=== PATIENT | male | born 1950 | race Two or more races ===

== ENCOUNTER 2018-07-25 12:02 | Inpatient (IN) | payer MEDICARE, OTHER ==
[~2018-07-25] VITALS: Ht 180.3 cm; Wt 81.6 kg
[2018-07-25] MEDS ORDERED: ACETAMINOPHEN 325 MG TABLET PO PRN (13:30)
[2018-07-25] MEDS ORDERED: MAG HYDROX/AL HYDROX/SIMETH 30 ML UDC PO PRN (13:30)
[2018-07-25] MEDS ORDERED: MAGNESIUM HYDROXIDE 30 ML UDC PO PRN (13:30)
[2018-07-25] MEDS ORDERED: METO-357 PO (14:06)
[2018-07-25] MEDS ORDERED: QUET300T2 PO (14:06)
[2018-07-25] MEDS ORDERED: CLON0.1T PO (14:06)
[2018-07-25] MEDS ORDERED: AMLO10TA6 PO (14:06)
--- NOTE | 2018-07-25 14:57 | NUR ---
GPS/RN LEFT MESSAGE WITH [facility] FOR TIME HARRY, REGARDING NEW ADMIT, NEED TO RECONCILE MEDS AND INCREASED BP OF 170/83, AWAITING CALL BACK.
[2018-07-25 16:00] VITALS: BP 188/94
--- NOTE | 2018-07-25 18:32 | NUR ---
GPS/RN ANN-MARIE MCDONALD NOTIFIED REGARDING NEED TO RECONCILE MEDS AND BP OF 188/94, AWAITING CALL BACK, NO NEW ORDERS AT THIS TIME.
--- NOTE | 2018-07-25 18:38 | NUR ---
GPS/RN PATIENT ADMITTED ON A 5150 HOLD FOR DTO AND DTS UNDER THE CARE OF DR MILLAN AND ANN-MARIE MCDONALD. BOTH DR'S AWARE OF NEW ADMISSION. AWAITING ANN-MARIE MCDONALD TO RECONCILE MEDS AND HE IS AWARE OF INCREASED BP. PER HOLD PATIENT WAS WALKING AROUND NAKED AND NOT ALLOWING HIS FAMILY MEMBERS TO LEAVE THE ROOM. PATIENT ALSO PAINTED HIS APPENDAGES WITH BLACK LATEX PAINT. UPON FACE TO FACE ASSESSMENT, PATIENT IS ALERT X 2-3, STABLE CONDITION,ANXIOUS, EASILY AGITATED, UNKEMPT AND DISORGANIZED. BELONGINGS COLLECTED, PATIENT DENIES SI/HI/AVH, PATIENT REFUSED SKIN ASSESSMENT X 3, EXPLAINED RISKS AND BENEFITS. BLACK PAIN IS VISIBLE ON LEGS AND ARMS. WILL CONTINUE TO MONITOR Q 15 MIN FOR SAFETY AND BEHAVIOR.
[2018-07-25] MEDS: LORAZEPAM 0.5 MG TABLET PO PRN (19:52)
--- NOTE | 2018-07-25 19:52 | NUR ---
GPS-RN PATIENT IS VERY ANXIOUS, RESTLESS AND PACING IN AND OUT OF HIS ROOM. ADMINISTERED ATIVAN 1MG PO ORDERED. WILL CONTINUE TO MONITOR Q15MIN ROUNDS FOR SAFETY AND BEHAVIOR.
[2018-07-25 20:34] VITALS: BP 168/93
[2018-07-26] MEDS ORDERED: DEXTROSE 50%-WATER 50 ML DISP.SYRIN IV PRN (04:00)
[2018-07-26] MEDS ORDERED: INSULIN REGULAR, HUMAN 100 UNIT/ML 3 ML VIAL SQ PRN (04:00)
[2018-07-26 06:50] LABS: BASOPHILS % (AUTO) 0.3 % (0.0-2.0); EOSINOPHILS % (AUTO) 11.8 % (0.0-6.0); HEMATOCRIT 37 % (39-51); HEMOGLOBIN 12.5 g/dL (13.5-17.5); LYMPHOCYTES # (AUTO) 1.9 /CMM (0.8-4.8); MEAN CORPUSCULAR HGB CONC 34 g/dl (31.0-36.0); MEAN CORPUSCULAR VOLUME 99 fL (80-96); MONOCYTES # (AUTO) 0.7 /CMM (0.1-1.30); NEUTROPHILS # (AUTO) 2.3 /CMM (1.8-8.9); NEUTROPHILS % (AUTO) 41.9 % (43.0-81.0); PLATELET COUNT (AUTO) 256 /CMM (150-450); RDW COEFFICIENT OF VARIATION 14.8 (11.5-15.0); RED BLOOD CELL COUNT(AUTO) 3.73 MIL/uL (4.5-6.0); WHITE BLOOD COUNT (AUTO) 5.5 K/uL (4.3-11.0)
[2018-07-26] MEDS: LORAZEPAM 0.5 MG TABLET PO PRN (06:59)
--- NOTE | 2018-07-26 06:59 | NUR ---
GPS-RN PATIENT IS VERY ANXIOUS, RESTLESS, PACING IN AND OUT OF HIS ROOM, NEEDS FREQUENT REDIRECTION. ADMINISTERED ATIVAN 1MG PO ORDERED. WILL CONTINUE TO MONITOR Q15MIN FOR SAFETY AND BEHAVIOR.
[2018-07-26 07:16] LABS: CHOLESTEROL 191 mg/dL (<200); HDL CHOLESTEROL 81 mg/dL (40-60); LDL 105 mg/dL (0-99); TRIGLYCERIDES 39 mg/dL (30-150)
[2018-07-26 07:28] LABS: ALBUMIN 3.1 g/dL (3.4-5.0); BILIRUBIN,TOTAL 0.4 mg/dL (0.2-1.0); CALCIUM, SERUM 8.5 mg/dL (8.5-10.1); CREATININE 1.3 mg/dL (0.6-1.3); MAGNESIUM 2.1 mg/dL (1.8-2.4); PHOSPHORUS 3.7 mg/dL (2.5-4.9); POTASSIUM 4.1 mmol/L (3.5-5.1); TOTAL PROTEIN, SERUM 6.7 g/dL (6.4-8.2)
[2018-07-26] MEDS: BLOOD SUGAR DIAGNOSTIC 1 EACH STRIP IN SCH ×4 (07:30→21:38)
[2018-07-26 08:00] VITALS: BP 154/88
[2018-07-26 08:47] LABS: THYROID STIMULATING HORMONE 0.939 uIU/mL (0.358-3.74)
[2018-07-26] MEDS ORDERED: HALOPERIDOL LACTATE INJ 5 MG/ML VIAL IM STA (08:48)
[2018-07-26] MEDS ORDERED: LORAZEPAM INJ 2 MG/ML VIAL IM STA (08:49)
[2018-07-26] MEDS ORDERED: diphenhydrAMINE HCL 50 MG/ML VIAL IM STA (08:50)
--- NOTE | 2018-07-26 09:14 | NUR ---
GPS RN NOTE; PT PACING IN THE HALLWAY RESTLESS, AGITATED, AGGRESSIVE, UNABLE TO CONTROL BEHAVIOR , PT THREATENING STAFF,,POINTING FINGER WILE TALKING, ARGUMENTATIVE, PT REQUESTING A SHOT STATED " I ALWAYS GET SHOTS" PT VOLUNTARY TOLD TO GET A SHOT. DR VIVAR NOTIFIED WITH ORDER FOR HALDOL 5 MG IM ONCE BENADRYL 25 MG IM ONCE ATIVAN 2 MG IM ONCE ORDER PLACED AND CARED OUT.PT COOPERATIVELY , NO PHYSICAL HOLD , PT WAS EXPLAIN OF INJECTABLE MEDICATIONS PT AWARE AND AGREED , VSS , WILL CONTINUE MONITORING FOR SAFETY AND BEHAVIOR Q 15 MIN
[2018-07-26] MEDS: AMLODIPINE BESYLATE 10 MG TABLET PO SCH (11:18)
[2018-07-26] MEDS: METOPROLOL SUCCINATE 50 MG TAB.SR.24H PO SCH (11:18)
[2018-07-26] MEDS: CLONIDINE HCL 0.1 MG TABLET PO SCH ×2 (11:18→16:00)
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
[2018-07-26 16:00] VITALS: BP_SYST 148; BP_SYST 174; BP_DIAS 72; BP_DIAS 88
[2018-07-26] MEDS: METFORMIN 500 MG TABLET PO SCH (16:00)
[2018-07-26 20:54] VITALS: BP 160/87
[2018-07-26] MEDS: QUETIAPINE FUMARATE 100 MG TABLET PO SCH (21:35)
--- NOTE | 2018-07-26 21:40 | NUR ---
GPS-RN PATIENT REFUSED ACCUCHE Addendum: 07/27/18 at 0614 by JESUS PRESLEY RN PATIENT REFUSED ACCUCHECK. EDUCATION GIVEN. PATIENT STILL REFUSED. PATIENT STATED "I AM NOT DIABETIC".
[2018-07-26] MEDS: TEMAZEPAM 7.5 MG CAPSULE PO PRN (22:12)
[2018-07-27] MEDS: BLOOD SUGAR DIAGNOSTIC 1 EACH STRIP IN SCH ×4 (07:30→21:10)
--- NOTE | 2018-07-27 07:35 | NUR ---
GPS/RN-NOTES PATIENT REFUSED ACCU-CHECK.STATED" I'M NOT DIABETIC".
[2018-07-27 08:00] VITALS: BP 139/83
[2018-07-27] MEDS: CLONIDINE HCL 0.1 MG TABLET PO SCH ×3 (09:00→16:46)
[2018-07-27] MEDS: METOPROLOL SUCCINATE 50 MG TAB.SR.24H PO SCH (09:00)
[2018-07-27] MEDS: AMLODIPINE BESYLATE 10 MG TABLET PO SCH (09:00)
[2018-07-27] MEDS: METFORMIN 500 MG TABLET PO SCH ×3 (09:00→16:46)
--- NOTE | 2018-07-27 09:28 | NUR ---
GPS/RN-NOTES PATIENT REFUSED ALL 0900AM MEDICATIONS DESPITE EXPLANATIONS RISK AND BENEFITS.PATIENT GETS ANGRY THROW ALL MEDICATIONS ON THE FLOOR WITH LOUD VOICE USING FOUL LANGUAGES , THREATENING SENIOR PRINCIPAL PROCESS ENGINEER TO GET OUT OF HIS ROOM AND ACCUSED SENIOR PRINCIPAL PROCESS ENGINEER OF NOT GIVING THE RIGHT MEDICATIONS. STATED" I DON'T WANT YOU WOMAN TO COME GIVE ME ANY MEDICATIONS AGAIN,I'M NOT DIABETIC". CHARGE NURSE AWARE AND AGREED TO CHANGE THE NURSE FOR THE PATIENT.
--- NOTE | 2018-07-27 13:43 | NUR ---
SW called the pt's sister, Mindi ([phone]), and was asked for a remote access code which the SW does not have. SW will attempt to call again to conduct the psychosocial assessment for the pt.
[2018-07-27] MEDS: LORAZEPAM 1 MG TABLET PO PRN ×2 (14:15→16:46)
[2018-07-27 16:00] VITALS: BP 185/92
--- NOTE | 2018-07-27 16:19 | NUR ---
RN NOTE: PATIENT CONTINUES TO REFUSE MEDS. OFFERED MANY TIMES.
--- NOTE | 2018-07-27 16:46 | NUR ---
PULLING OUT ANOTHER SET OF MEDS TO SEE IF PATIENT WILL TAKE AGAIN. LAST TIME PATIENT DID NOT WANT ATIVAN. OPENED AND WASTED.
[2018-07-27] MEDS ORDERED: LORAZEPAM INJ 2 MG/ML VIAL IM STA (17:01)
--- NOTE | 2018-07-27 17:01 | NUR ---
PATIENT BROKE THERMOSTAT IN ROOM.
[2018-07-27] MEDS ORDERED: HALOPERIDOL LACTATE INJ 5 MG/ML VIAL IM STA (17:03)
[2018-07-27] MEDS ORDERED: diphenhydrAMINE HCL 50 MG/ML VIAL IM STA (17:03)
--- NOTE | 2018-07-27 17:16 | NUR ---
PATIENT AGITATED AND ACTING UP. PATIENT ASKED FOR IM INJECTION OF MEDICATIONS. ATIVAN 2MG, HALDOL 5MG, AND 25MG BENADRYL GIVEN, WILLINGLY.
[2018-07-27 20:16] VITALS: BP 147/71
[2018-07-27] MEDS: QUETIAPINE FUMARATE 100 MG TABLET PO SCH (21:10)
--- NOTE | 2018-07-27 21:10 | NUR ---
GPS-RN PATIENT REFUSED ACCUCHECK AND ROUTINE NIGHT MEDICATIONS, PO. EDUCATION GIVEN. PATIENT STILL REFUSED.
--- NOTE | 2018-07-28 06:31 | NUR ---
GPS-RN EXPLAINED TO PATIENT THAT PSYCHIATRIC DOCTOR WILL FILE FOR RIESE PETITION.
[2018-07-28] MEDS: BLOOD SUGAR DIAGNOSTIC 1 EACH STRIP IN SCH ×4 (07:30→21:20)
[2018-07-28 08:00] VITALS: BP 173/68
[2018-07-28] MEDS: AMLODIPINE BESYLATE 10 MG TABLET PO SCH (08:51)
[2018-07-28] MEDS: DIVALPROEX SODIUM 250 MG TABLET.DR PO SCH ×3 (09:00→17:00)
[2018-07-28] MEDS: METOPROLOL SUCCINATE 50 MG TAB.SR.24H PO SCH (09:00)
[2018-07-28] MEDS: METFORMIN 500 MG TABLET PO SCH ×2 (09:00→17:00)
[2018-07-28] MEDS: CLONIDINE HCL 0.1 MG TABLET PO SCH (09:00)
--- NOTE | 2018-07-28 09:14 | NUR ---
GPS/RN PATIENT ADAMANTLY REFUSED ALL A.M. MEDICATIONS AND BS CHECK X3, EXPLAINED RISKS AND BENEFITS, CONTINUES TO REFUSE. UPON APPROACH PATIENT IS VERBALLY ABUSIVE, ACCUSATORY, LABILE WITH POOR BOUNDARIES. PATIENT REQUESTED STAFF TO SHOW HIM HOW TO USE THE TELEPHONE IN HALLWAY. STAFF PROVIDED PATIENT WITH VERBAL INSTRUCTIONS AND DEMONSTRATION. WILL CONTINUE TO ENCOURAGE TO COMPLY WITH MD REGIMEN AND TREATMENTS.
--- NOTE | 2018-07-28 11:00 | NUR ---
GPS/RN PATIENT REFUSED SHOWER, ENCOURAGED X 3, EXPLAINED RISKS AND BENEFITS
--- NOTE | 2018-07-28 11:30 | NUR ---
GPS/RN PATIENT REFUSED SKIN ASSESSMENT X 3, EXPLAINED RISKS AND BENEFITS, WILL CONTINUE TO ENCOURAGE AND EDUCATE ON THE IMPORTANCE OF PROPER HYGIENE.
--- NOTE | 2018-07-28 12:00 | NUR ---
GPS/RN PATIENT ADAMANTLY REFUSED BS CHECK X 3, EXPLAINED RISKS AND BENEFITS.
--- NOTE | 2018-07-28 14:37 | NUR ---
SW called the pt's sister, Mindi ([phone]), and was asked for a remote access code which the SW does not have. SW attempted to call again to conduct the psychosocial assessment for the pt.
--- NOTE | 2018-07-28 15:37 | NUR ---
SW attempted to conduct the psychosocial assessment with the pt and he stated, "No I don't want to talk to you right now. I don't want to talk to you ever. Get out of here." Pt became verbally aggressive and the SW left.
[2018-07-28 16:00] VITALS: BP 195/117
--- NOTE | 2018-07-28 16:02 | NUR ---
Initial Discharge Plan: Pt currently resides with his family in a home located at [address] [place] [address]; ([phone]). SW attempted to call the pt's sister, Mindi, but was unable to make contact. MARKOS will work with the family and the pt regarding appropriate discharge planning. SW will form a safe and proper discharge.
--- NOTE | 2018-07-28 16:07 | NUR ---
GPS/RN PATIENT'S BP IS 195/117, PATIENT IS ADAMANTLY REFUSING ANY MEDICATIONS INCLUDING HIS BP MEDS. ENCOURAGED X 3 AND EXPLAINED RISKS AND BENEFITS, CONTINUES TO REFUSE, STATED " GET THE HELL AWAY FROM WITH THAT SHIT". ASKED IF HE WOULD BE WILLING TO ACCEPT CLONIDINE PATCH AND PATIENT STATED " I TOLD YOU, IM NOT TAKING ANY MEDS" WILL NOTIFY MD. PATIENT IS IN DINING ROOM WATCHING TV, NO S/S OF DISTRESS AT THIS TIME. WILL CONTINUE TO MONITOR. Addendum: 07/28/18 at 1620 by SOLITARIO GARCIA RN DR ZAFAR AWARE OF BP, AWAITING CALL BACK.
--- NOTE | 2018-07-28 16:20 | NUR ---
GPS/RN DR ZAFAR WAS NOTIFIED REGARDING BP OF 195/117 AND REFUSAL OF ALL MEDICATIONS DURING SHIFT. NEW ORDER OF CLONODINE PATCH 0.3MG, WILL INPUT ORDER IN SYSTEM AND OFFER PATCH TO PATIENT.
[2018-07-28] MEDS: CLONIDINE HCL 0.3 MG/24H PTWK 1 EA PATCH TD SCH (17:00)
--- NOTE | 2018-07-28 17:00 | NUR ---
GPS/RN PATIENT ADAMANTLY REFUSED BS X 3, EXPLAINED RISKS AND BENEFITS, WILL CONTINUE TO ENCOURAGE TO COMPLY WITH MD REGIMEN.
--- NOTE | 2018-07-28 17:30 | NUR ---
GPS/RN PHARMACY NOTIFIED X 2 REGARDING INCREASED BP AND NEED FOR CLONODINE PATCH, STATED THEY WOULD BRING PATCH TO UNIT. AWAITING PHARMACY.
--- NOTE | 2018-07-28 17:30 | NUR ---
GPS/RN PATIENT REFUSED 1700 MEDICATIONS X 3, EXPLAINED RISKS AND BENEFITS, CONTINUES TO REFUSE AND IS VERBALLY ABUSIVE UPON APPROACH. WILL CONTINUE TO ENCOURAGE TO COMPLY WITH MD REGIMEN.
--- NOTE | 2018-07-28 19:22 | NUR ---
GPS/RN CLONODINE PATCH STILL NOT AVAILABLE ON UNIT. AWAITING PHARMACY. ENDORSED TO ONCOMING RN TO FOLLOW UP IN REGARDS TO CLONODINE PATCH.
--- NOTE | 2018-07-28 19:50 | NUR ---
GPS/BILLING SERVICES MANAGER NOTES: RECEIVED CLONIDINE PATCH FROM PHARMACY. OFFERED TO PT. PT. REFUSED. GETS AGITATED. EXPLAINED RISK AND BENEFITS. PT. STILL REFUSED. WILL CONTINUE TO MONITOR.
--- NOTE | 2018-07-28 20:00 | NUR ---
GPS/SHRINKING MACHINE OPERATOR NOTES: PT. REFUSED HS VITAL SIGNS. OFFERED 3X. EXPLAINED RISK AND BENEFITS. PT. STILL REFUSED. PT. STATED, "NO. GET THE HELL AWAY FROM ME. " WILL CONTINUE TO MONITOR.
[2018-07-28] MEDS: QUETIAPINE FUMARATE 100 MG TABLET PO SCH (21:20)
--- NOTE | 2018-07-28 21:21 | NUR ---
GPS/MECHANIC FIELD SERVICE NOTES: PT. REFUSED HS ACCUCHECK AND HS MEDS. OFFERED 3X. EXPLAINED RISK AND BENEFITS. PT. STILL REFUSED AND GETS AGITATED. WILL CONTINUE TO MONITOR.
--- NOTE | 2018-07-29 05:55 | NUR ---
GPS/RF TEST ENGINEER NOTES: NOTICED PT. EATING SOAP IN PT.S BATHROOM SINK AND SCRAPING THE SCHEDULING BOARD IN HIS ROOM. PT. ALSO WALKING ROOM TO ROOM IN OTHER PTS. ROOM. REDIRECTED. PT. NEEDS CONSTANT REDIRECTION AND OBSERVATION.
--- NOTE | 2018-07-29 05:58 | NUR ---
GPS/WEDDING PLANNING INTERNSHIP NOTES: CHARGE NURSE CALLED DR. MEMBRENO FOR 1:1 SITTER ORDERED
[2018-07-29] MEDS: BLOOD SUGAR DIAGNOSTIC 1 EACH STRIP IN SCH ×4 (07:30→22:00)
[2018-07-29 08:00] VITALS: BP 157/59
[2018-07-29] MEDS: METFORMIN 500 MG TABLET PO SCH ×2 (09:00→17:58)
--- NOTE | 2018-07-29 09:34 | NUR ---
Mindi ([phone]), pt's sister, called the SW and provided her with a better contact number. Pt's sister informed the SW that she will be getting a restraining order on the pt and that he cannot be discharged back home. SW and the pt's sister then discussed a potential plan of having the pt go to a senior care facility or a board and care facility.
[2018-07-29] MEDS: LORAZEPAM 1 MG TABLET PO PRN ×2 (10:10→15:10)
[2018-07-29] MEDS: DIVALPROEX SODIUM 250 MG TABLET.DR PO SCH ×3 (10:10→17:58)
[2018-07-29] MEDS: METOPROLOL SUCCINATE 50 MG TAB.SR.24H PO SCH (10:11)
[2018-07-29] MEDS: AMLODIPINE BESYLATE 10 MG TABLET PO SCH (10:11)
--- NOTE | 2018-07-29 10:19 | NUR ---
SW also informed Mindi ([phone]), pt's sister, that the pt is having a Riese hearing today due to the pt refusing to take his medications. The pt's sister asked the SW to let her know what the results of the hearing are.
--- NOTE | 2018-07-29 10:20 | NUR ---
GPS/RN-NOTES NOTED PATIENT WITH DEMANDING, PACING IN THE HALLWAY TO HIS ROOM,TALKING WITH LOUD VOICE. ATIVAN 1MG P.O GIVE PRN ORDER. ON 1:1 MONITORING FOR SAFETY AND BEHAVIOR.
[2018-07-29] MEDS ORDERED: BENZTROPINE MESYLATE (2MG/2ML) 2 MG/2 ML AMPUL IM PRN (13:00)
[2018-07-29] MEDS ORDERED: HALOPERIDOL LACTATE INJ 5 MG/ML VIAL IM ONE (13:00)
[2018-07-29] MEDS ORDERED: HALOPERIDOL LACTATE INJ 5 MG/ML VIAL IM PRN (13:00)
[2018-07-29] MEDS: HALOPERIDOL 5 MG TABLET PO SCH ×2 (13:37→17:58)
[2018-07-29] MEDS: BENZTROPINE MESYLATE (1 MG) 1 MG TABLET PO SCH ×2 (13:37→17:58)
[2018-07-29] MEDS: CLONIDINE HCL 0.3 MG/24H PTWK 1 EA PATCH TD SCH (15:11)
--- NOTE | 2018-07-29 15:15 | NUR ---
GPS/RN-NOTES PATIENT UNABLE TO SIT STILL ,HYPERVERBAL WITH LOUD VOICE. ATIVAN 1MG P.O GIVEN PRN ORDER. ON 1:1 MONITORING FOR SAFETY AND BEHAVIOR.
[2018-07-29 16:00] VITALS: BP 191/88
[2018-07-29 20:00] VITALS: BP 160/88
[2018-07-29] MEDS: TEMAZEPAM 7.5 MG CAPSULE PO PRN (22:11)
[2018-07-30] MEDS: BLOOD SUGAR DIAGNOSTIC 1 EACH STRIP IN SCH ×4 (07:27→21:44)
[2018-07-30 08:00] VITALS: BP 153/75
[2018-07-30] MEDS: METFORMIN 500 MG TABLET PO SCH ×2 (08:50→17:02)
[2018-07-30] MEDS: HALOPERIDOL 5 MG TABLET PO SCH ×3 (08:51→17:02)
[2018-07-30] MEDS: BENZTROPINE MESYLATE (1 MG) 1 MG TABLET PO SCH ×3 (08:51→17:02)
[2018-07-30] MEDS: DIVALPROEX SODIUM 250 MG TABLET.DR PO SCH ×3 (08:51→17:02)
[2018-07-30] MEDS: METOPROLOL SUCCINATE 50 MG TAB.SR.24H PO SCH (08:51)
[2018-07-30] MEDS: AMLODIPINE BESYLATE 10 MG TABLET PO SCH (08:52)
[2018-07-30 16:00] VITALS: BP 181/91
--- NOTE | 2018-07-30 19:30 | NUR ---
GPS RN NOTE, RECEIVED PATIENT AWAKE AND IN BED, NO S/S OR COMPLAINTS OF PAIN AT THIS TIME. PATIENT IS DISPLAYING NO S/S OF APPARENT DISTRESS AT THIS TIME. PATIENT BREATHING IS UNLABORED WITH EQUAL RISE AND FALL OF THE CHEST. PATIENT IS ALERT AND ORIENTED X 2 ON ROOM AIR WITH A SPO2 OF 99%. PATIENT IS MED SELECTIVE, DISORGANIZED, CONFUSED AT TIMES, AND NEEDS REDIRECTION. PATIENT DENIES SUICIDE IDEATIONS AND HOMICIDAL IDEATIONS AT THIS TIME. PATIENT ASSISTED WITH TURNING AND REPOSITIONING Q 2HRS AND PRN FOR COMFORT AND CIRCULATION. PATIENT HAS NO NEEDS AT THIS TIME. PATIENT EDUCATED ON THE USE OF THE CALL EATON. PATIENT BED SIDE RAILS UP X 2 FOR SAFETY, BED IS LOCKED, LOW, AND I WILL CONTINUE TO MONITOR AND MAINTAIN SAFETY Q15 MIN WITH THE HELP OF STAFF.
[2018-07-30] MEDS: LORAZEPAM 1 MG TABLET PO PRN (20:14)
--- NOTE | 2018-07-30 20:14 | NUR ---
GPS RN NOTE, PATIENT HAS A COMPLAINT OF FEELING ANXIOUS AND IS REQUESTING ATIVAN AT THIS TIME. PATIENT VITAL SIGNS ARE STABLE. GAVE ATIVAN 1 MG PO Q4HR PRN ORDERED WILL REASSESS FOR ANXIETY AND I WILL CONTINUE TO MONITOR THIS PATIENT.
--- NOTE | 2018-07-30 21:44 | NUR ---
GPS RN NOTE, PERFORMED ACCU-CHECK ON PATIENT WITH A BLOOD SUGAR RESULT OF 123. NO INSULIN COVERAGE GIVEN PER SLIDING SCALE. WILL CONTINUE TO MONITOR THIS PATIENT.
--- NOTE | 2018-07-31 07:34 | NUR ---
[id number]: BLOOD SUGAR IS 95 MG/DL AND NO INSULIN REQUIRED AT THIS TIME
[2018-07-31 08:00] VITALS: BP 155/90
[2018-07-31] MEDS: BLOOD SUGAR DIAGNOSTIC 1 EACH STRIP IN SCH ×4 (08:18→22:07)
[2018-07-31] MEDS: BENZTROPINE MESYLATE (1 MG) 1 MG TABLET PO SCH ×3 (08:19→17:08)
[2018-07-31] MEDS: AMLODIPINE BESYLATE 10 MG TABLET PO SCH (08:19)
[2018-07-31] MEDS: DIVALPROEX SODIUM 250 MG TABLET.DR PO SCH ×3 (08:19→17:08)
[2018-07-31] MEDS: METFORMIN 500 MG TABLET PO SCH ×2 (08:19→17:08)
[2018-07-31] MEDS: HALOPERIDOL 5 MG TABLET PO SCH ×3 (08:19→17:08)
[2018-07-31] MEDS: METOPROLOL SUCCINATE 50 MG TAB.SR.24H PO SCH (08:20)
--- NOTE | 2018-07-31 11:37 | NUR ---
[id number]: BLOOD SUGAR IS 113 MG/DL AND NO INSULIN REQUIRED AT THIS TIME
[2018-07-31 16:00] VITALS: BP 153/75
--- NOTE | 2018-07-31 16:24 | NUR ---
[id number]: BLOOD SUGAR IS 117 MG/DL AND NO INSULIN REQUIRED AT THIS TIME
[2018-07-31 20:00] VITALS: BP 154/78
[2018-07-31] MEDS: TEMAZEPAM 7.5 MG CAPSULE PO PRN (21:55)
[2018-08-01] MEDS: BLOOD SUGAR DIAGNOSTIC 1 EACH STRIP IN SCH ×4 (08:05→21:36)
[2018-08-01] MEDS: DIVALPROEX SODIUM 250 MG TABLET.DR PO SCH ×3 (08:06→16:08)
[2018-08-01] MEDS: BENZTROPINE MESYLATE (1 MG) 1 MG TABLET PO SCH ×3 (08:06→16:08)
[2018-08-01] MEDS: HALOPERIDOL 5 MG TABLET PO SCH ×3 (08:06→16:08)
[2018-08-01] MEDS: AMLODIPINE BESYLATE 10 MG TABLET PO SCH (08:07)
[2018-08-01] MEDS: METOPROLOL SUCCINATE 50 MG TAB.SR.24H PO SCH (08:07)
[2018-08-01] MEDS: METFORMIN 500 MG TABLET PO SCH ×2 (08:07→16:08)
[2018-08-01 09:32] VITALS: BP 133/74
[2018-08-01] MEDS: LORAZEPAM 1 MG TABLET PO PRN (10:57)
--- NOTE | 2018-08-01 11:09 | NUR ---
PS-RN PATIENT IS ANXIOUS, RESTLESS, NEEDS FREQUENT REDIRECTION. ADMINISTERED ATIVAN 1MG PO ORDERED. WILL CONTINUE TO MONITOR Q15MIN FOR SAFETY AND BEHAVIOR.
--- NOTE | 2018-08-01 16:05 | NUR ---
Pt was accepted to [facility] per Marcos ([phone]).
--- NOTE | 2018-08-01 16:05 | NUR ---
MARKOS sent a referral to [facility] for the pt to the fax number: [phone].
--- NOTE | 2018-08-01 16:06 | NUR ---
SW attempted to conduct a substance abuse intervention with the pt but he presented as being guarded and was verbally aggressive with the SW. The SW will attempt again the following day.
[2018-08-01 16:50] VITALS: BP 154/81
[2018-08-01 20:44] VITALS: BP 154/77
--- NOTE | 2018-08-01 21:36 | NUR ---
CUSTOMER SERVICE AND SALES CONSULTANT NOTES, PATIENT REFUSED ACCUCHECK, RISKS AND BENEFITS EXPLAINED 3X, STILL REFUSED, WILL CONTINUE TO MONITOR CLOSELY.
[2018-08-01] MEDS: TEMAZEPAM 7.5 MG CAPSULE PO PRN (23:43)
--- NOTE | 2018-08-02 07:40 | NUR ---
[id number]: BLOOD SUGAR IS 116 MG/DL AND NO INSULIN REQUIRED AT THIS TIME
[2018-08-02 08:00] VITALS: BP 149/99
[2018-08-02] MEDS: BLOOD SUGAR DIAGNOSTIC 1 EACH STRIP IN SCH ×4 (08:22→21:51)
[2018-08-02] MEDS: HALOPERIDOL 5 MG TABLET PO SCH ×3 (08:23→17:24)
[2018-08-02] MEDS: DIVALPROEX SODIUM 250 MG TABLET.DR PO SCH ×3 (08:23→17:25)
[2018-08-02] MEDS: METFORMIN 500 MG TABLET PO SCH ×2 (08:23→17:24)
[2018-08-02] MEDS: BENZTROPINE MESYLATE (1 MG) 1 MG TABLET PO SCH ×3 (08:23→17:24)
[2018-08-02] MEDS: AMLODIPINE BESYLATE 10 MG TABLET PO SCH (08:24)
[2018-08-02] MEDS: METOPROLOL SUCCINATE 50 MG TAB.SR.24H PO SCH (08:25)
[2018-08-02] MEDS: LORAZEPAM 1 MG TABLET PO PRN (11:11)
--- NOTE | 2018-08-02 11:11 | NUR ---
[id number]: GAVE ATIVAN 1 MG PO DUE TO INCREASED ANXIETY UPON PT REQUEST AND WILL CONTINUE TO MONITOR FOR EFFECTIVENESS OF MEDICATION
--- NOTE | 2018-08-02 11:52 | NUR ---
[id number]: BLOOD SUGAR IS 99 MG/DL AND NO INSULIN REQUIRED AT THIS TIME
[2018-08-02 16:08] VITALS: BP 142/74
[2018-08-02 20:00] VITALS: BP 157/80
[2018-08-02 20:20] VITALS: BP 157/80
[2018-08-02] MEDS: TEMAZEPAM 7.5 MG CAPSULE PO PRN (22:36)
[2018-08-03] MEDS: BLOOD SUGAR DIAGNOSTIC 1 EACH STRIP IN SCH ×4 (07:40→21:12)
[2018-08-03 08:00] VITALS: BP 163/98
[2018-08-03] MEDS: LORAZEPAM 1 MG TABLET PO PRN ×2 (08:25→21:00)
[2018-08-03] MEDS: AMLODIPINE BESYLATE 10 MG TABLET PO SCH (08:25)
[2018-08-03] MEDS: METOPROLOL SUCCINATE 50 MG TAB.SR.24H PO SCH (08:25)
[2018-08-03] MEDS: METFORMIN 500 MG TABLET PO SCH ×2 (08:25→16:02)
[2018-08-03] MEDS: DIVALPROEX SODIUM 250 MG TABLET.DR PO SCH ×3 (08:25→16:02)
[2018-08-03] MEDS: HALOPERIDOL 5 MG TABLET PO SCH ×3 (08:25→16:02)
[2018-08-03] MEDS: BENZTROPINE MESYLATE (1 MG) 1 MG TABLET PO SCH ×3 (08:25→16:02)
--- NOTE | 2018-08-03 09:26 | NUR ---
[id number]: ATIVAN 1 MG PO GIVEN DUE TO INCREASED ANXIETY UPON PT REQUEST AND WILL CONTINUE TO MONITOR FOR EFFECTIVENESS OF MEDICATION
--- NOTE | 2018-08-03 14:42 | NUR ---
RN-CO: Patient is more redirectable, no aggression noted. Discontinued 1:1.
--- NOTE | 2018-08-03 15:37 | NUR ---
MARKOS called Mindi ([phone]), pt's sister, and informed her that the pt is going to be discharged to [facility] ([facility]) and provided with her with the address and the phone number.
[2018-08-03 16:00] VITALS: BP 145/75
[2018-08-03 19:52] VITALS: BP 158/87
--- NOTE | 2018-08-03 21:00 | NUR ---
GPS-RN PATIENT IS ANXIOUS AND RESTLESS. ADMINISTERED ATIVAN 1MG PO ORDERED PER PATIENT'S REQUEST. WILL CONTINUE TO MONITOR Q15MIN FOR SAFETY AND BEHAVIOR.
[2018-08-03] MEDS: TEMAZEPAM 7.5 MG CAPSULE PO PRN (21:45)
[2018-08-04] MEDS: LORAZEPAM 1 MG TABLET PO PRN ×2 (06:37→12:18)
--- NOTE | 2018-08-04 06:37 | NUR ---
GPS-RN PATIENT C/O FEELING ANXIOUS. ADMINISTERED ATIVAN 1MG PO ORDERED PER PATIENT'S REQUEST. WILL CONTINUE TO MONITOR Q15MIN FOR SAFETY AND BEHAVIOR.
[2018-08-04 08:00] VITALS: BP 164/70
[2018-08-04] MEDS: BLOOD SUGAR DIAGNOSTIC 1 EACH STRIP IN SCH ×2 (08:31→12:00)
[2018-08-04] MEDS: DIVALPROEX SODIUM 250 MG TABLET.DR PO SCH ×2 (08:31→12:19)
[2018-08-04] MEDS: METFORMIN 500 MG TABLET PO SCH (08:31)
[2018-08-04] MEDS: METOPROLOL SUCCINATE 50 MG TAB.SR.24H PO SCH (08:32)
[2018-08-04] MEDS: BENZTROPINE MESYLATE (1 MG) 1 MG TABLET PO SCH ×2 (08:32→12:18)
[2018-08-04] MEDS: HALOPERIDOL 5 MG TABLET PO SCH ×2 (08:32→12:18)
[2018-08-04] MEDS: AMLODIPINE BESYLATE 10 MG TABLET PO SCH (08:33)
--- NOTE | 2018-08-04 08:56 | NUR ---
DR. MEMBRENO GAVE AN ORDER TO D/C HOLD AND D/C TO [facility] AND TO FOLLOW UP WITH PSYCH AND MEDICAL DOCTORS.
--- NOTE | 2018-08-04 12:06 | NUR ---
GPS/RN BP 196/101 P78. REE HERNANDEZ SALES AGENT TRADING STAMPS MADE AWARE NEW ORDERS RECEIVED AND CARRIED OUT. AMBULANCE IS ON WILL CALL TILL BP STABILIZED. REPORT GIVEN TO [facility] NUR[facility].PT IS ANXIOUS REFUSED ACCUCHECK AND TO SIGN DISCHARGE PAPERWORK.OFFERED X3. NO SI OR HI AT THIS TIME. WILL CONTINUE TO MONITOR.
[2018-08-04 12:18] VITALS: BP 196/101
[2018-08-04] MEDS ORDERED: CLONIDINE HCL 0.1 MG TABLET PO PRN (12:30)
--- NOTE | 2018-08-04 15:35 | NUR ---
MARKOS called Mindi ([phone]), pt's sister, and asked her to convince the pt to go to the SNF.
--- NOTE | 2018-08-04 15:45 | NUR ---
GP/RN AMBULANCE HERE TO [facility] PT. VSS. PT IS AMBULATORY NO ACUTE DISTRESS NOTED. REFUSED TO SIGN THE D/C PAPERWORK/EXIT CARE. PROPERTY RETURNED. PT NOT HAVING ANY SI OR HI AT THE TIME OF DISCHARGE. RADHA PEREZ [facility] MADE AWARE OF PT'S DELAY OF [facility].
--- NOTE | 2018-08-04 16:17 | NUR ---
Discharge Note: Pt was discharged to [facility] ([facility]) located at [address] [place] [id number]; ([phone]). Pt was transported via [facility] (Trip #[id number]) at 4PM. Upon discharge, the pt was in a dysphoric mood with an irritated affect. Pt denied having any suicidal or homicidal ideation as well as any visual and auditory hallucinations. Pt was provided with three substance abuse referrals as well as with two smoking cessation referrals. Pt will be under the care of psychiatrist, Dr. Arreola, located at [address] [address], [place] [address]; and felt finishing supervisor, Dr. Janes Zhu, located at [address] [place] [address]; . Three Substance Abuse referrals: [facility] [address] [facility] [place] [address] Tel. [facility] Primary Care [facility] [address] [place] Provider Mental Health Treatment Tele-dermatology HIV Services Telemedicine Services [place] [address] [place] [address] [facility] [address] [place] [address] Smoking cessation referrals: [facility] 800-LUNGUSA [facility] [phone]
== END 2018-08-04 15:50 | DRG 885 ==
LOC: GPS 12:05
PROVIDERS: ADMIT Psychiatry & Neurology Psychiatry; ATTEND Psychiatry & Neurology Psychiatry
DX: F25.9 Schizoaffective disorder, unspecified (principal); E11.65 Type 2 diabetes mellitus with hyperglycemia; I10 Essential (primary) hypertension; F29 Unspecified psychosis not due to a substance or known physiological condition; Z91.14 Patient's other noncompliance with medication regimen; Z73.6 Limitation of activities due to disability
CPT/HCPCS: 36415; 80053-TC; 80061-TC; 80164-TC; 82962-TC; 83735-TC; 84100-TC; 84443-TC; 85025-TC; 87081-TC; A4606; J1200; J1630; J1815; J2060; Z7610